=== PATIENT | male | born 1975 | race American Indian/Alaskan Native ===

== ENCOUNTER 2019-04-04 14:25 | Emergency (ER) | payer SELFPAY ==
[2019-04-04] MEDS ORDERED: SODIUM CHLORIDE 0.9% 1000 ML 2,000 ML IV ONE (15:01)
[2019-04-04] MEDS ORDERED: ACETAMINOPHEN 500 MG TAB PO ONE (15:03)
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
[2019-04-04 15:27] LABS: Hematocrit 47.1 % (35.5-45.6); Hemoglobin 15.5 gm/dl (11.8-15.2)
[2019-04-04 15:39] LABS: Alanine Aminotransferase 5 units/L (7-56); Albumin 4.3 g/dL (3.9-5); BUN/Creatinine Ratio 13; Blood Urea Nitrogen 12 mg/dL (9-20); Calcium 9.8 mg/dL (8.4-10.2); Hemolysis Index 6
[2019-04-04 15:39] LABS: Bilirubin,Urine NEG (Negative); Blood,Urine NEG (Negative); Color,Urine Amber (Yellow); Mucus,Urine 2+ /HPF
--- NOTE | 2019-04-04 15:55 | XRay Report ---
CHEST 2 VIEWS INDICATION: MAIN: acute febrile illness cough; Received from [place] with complains of fever and vomiting and head ache. COMPARISON: None. FINDINGS: Support devices: None. Heart: Within normal limits. Lungs/Pleura: No acute air space or interstitial disease. No significant pleural effusion. IMPRESSION: No acute findings. Signer Name: Fantasma Mendoza MD Signed: 04/04/2019 3:51 PM Workstation Name: [id number]
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
[2019-04-04] MEDS ORDERED: SODIUM CHLORIDE 0.9% 1000 ML 1,000 ML IV ONE (17:29)
[2019-04-04] MEDS ORDERED: KETOROLAC 30 MG/1 ML INJ IV ONE (17:29)
[2019-04-04 20:35] VITALS: BP 100/61
== END 2019-04-04 19:55 ==
LOC: ED 14:25
DX: J02.9 Acute pharyngitis, unspecified (principal); F17.200 Nicotine dependence, unspecified, uncomplicated; F41.9 Anxiety disorder, unspecified
CPT/HCPCS: 36415; 70450; 71046; 80053; 81001; 82550; 83735; 85014; 85018; 85049; 87086; 87116; 87400; 87430; 93005; 93010; 96361; 96374; 99285; J1885; J7030; 80320; G0480